=== PATIENT | female | born 1985 | race Caucasian/White ===

== ENCOUNTER 2017-01-30 00:24 | Emergency (ER) | payer OTHER ==
[2017-01-30 00:33] VITALS: BP 126/90
--- NOTE | 2017-01-30 00:48 | EDM.PDOC ---
ED HPI GENERAL MEDICAL PROBLEM - General Chief Complaint: General Stated Complaint: MEDICAL CLEARANCE Time Seen by Provider: 01/30/17 00:35 Source of Information: Reports: Patient, Police History Limitations: Reports: Intoxication - History of Present Illness INITIAL COMMENTS - FREE TEXT/NARRATIVE: The patient was brought to the ER for medical clearance by [employer]. She blew a 0.17. She does admit to drinking. She denies using any other drugs. She is hepatitis C positive. She did fall a few days ago and she has an abrasion to her right lateral eyebrow. She had no LOC. She has no pain now. She does admit to drinking the past few days. Onset: Gradual Duration: Day(s): Improves with: Reports: None Worsens with: Reports: None Associated Symptoms: Reports: No Other Symptoms - Related Data Allergies Allergy/AdvReac Type Severity Reaction Status Date / Time bee venom protein (honey bee) Allergy Anaphylactic Verified 01/30/17 00:33 Shock Past Medical History - Infectious Disease History Infectious Disease History: Reports: Hepatitis C Social & Family History - Family History Family Medical History: Noncontributory - Tobacco Use Smoking Status *Q: Current Every Day Smoker Years of Tobacco use: 22 Packs/Tins Daily: 0.5 - Caffeine Use Caffeine Use: Reports: None - Recreational Drug Use Recreational Drug Use: Yes Other Recreational Drug Type: Any recreational drugs ED ROS GENERAL - Review of Systems Review Of Systems: See Below Constitutional: Reports: No Symptoms HEENT: Reports: Other (abrasion to right lateral eyebrow) Respiratory: Reports: No Symptoms Cardiovascular: Reports: No Symptoms Endocrine: Reports: No Symptoms GI/Abdominal: Reports: No Symptoms : Reports: No Symptoms Musculoskeletal: Reports: No Symptoms Skin: Reports: No Symptoms Neurological: Reports: No Symptoms ED EXAM, GENERAL - Physical Exam Exam: See Below Exam Limited By: No Limitations General Appearance: Alert, No Apparent Distress Eye Exam: Bilateral Eye: EOMI, Nystagmus Ears: Normal External Exam Nose: Normal Inspection Head: Other (abrasion to the right lateral eyebrow) Neck: Normal Inspection Respiratory/Chest: No Respiratory Distress, Lungs Clear, Normal Breath Sounds Cardiovascular: Regular Rate, Rhythm, No Edema, No Murmur GI/Abdominal: Soft, Non-Tender, No Organomegaly, No Mass Back Exam: Normal Inspection Extremities: Normal Inspection Course - Vital Signs Last Recorded V/S: Last Vital Signs Temp 97.8 F 01/30/17 00:31 Pulse 82 01/30/17 00:31 Resp 16 01/30/17 00:31 BP 126/90 01/30/17 00:31 Pulse Ox 97 01/30/17 00:31 - Re-Assessments/Exams Free Text/Narrative Re-Assessment/Exam: 01/30/17 00:47 The patient appears to be intoxicated. She is medically cleared to go to the [facility]. Departure - Departure Time of Disposition: 00:50 Disposition: Home, Self-Care 01 Condition: good Clinical Impression: Abrasion, face w/o infection Alcohol intoxication Qualifiers: Complication of substance-induced condition: uncomplicated Qualified Code(s): F10.920 - Alcohol use, unspecified with intoxication, uncomplicated Fall Qualifiers: Encounter type: initial encounter Qualified Code(s): W19.XXXA - Unspecified fall, initial encounter - Discharge Information Forms: ED Department Discharge Additional Instructions: A medical screening exam has been done and you are medically cleared to go to the [facility].
== END 2017-01-30 00:50 | disposition home or self-care (01) ==
LOC: JD.ED 00:24
DX: S00.81XA Abrasion of other part of head, initial encounter (principal); F17.210 Nicotine dependence, cigarettes, uncomplicated; Z91.030 Bee allergy status; W19.XXXA Unspecified fall, initial encounter
CPT/HCPCS: 99282; 99283